=== PATIENT | female | born 1955 | race Caucasian/White ===

== ENCOUNTER → 2019-07-28 | Outpatient (CLI) | payer OTHER ==
[2019-07-28 09:22] LABS: CREATININE 0.7 mg/dL (0.6-1.3)
== END ==
LOC: M.LAB 08:30 → M.CT 09:30
PROVIDERS: Registered Nurse Diabetes Educator
DX: J18.1 Lobar pneumonia, unspecified organism (principal); R07.9 Chest pain, unspecified; R53.83 Other fatigue; R06.02 Shortness of breath; R05 Cough; Z78.9 Other specified health status